=== PATIENT | female | born 1930 | race Caucasian/White ===

== ENCOUNTER → 2016-06-26 | Outpatient (CLI) | payer MEDICARE, BC | LOC: MW.CHIM 14:23 | PROVIDERS: ATTEND Internal Medicine | DX: I10 Essential (primary) hypertension (principal) | CPT/HCPCS: 99204 ==

== ENCOUNTER → 2016-06-30 | Outpatient (CLI) | payer MEDICARE, BC ==
--- NOTE | 2016-07-02 15:18 | ECHO ---
The echocardiogram report can be seen in this patient's EMR in the Reports section. SRAVANI
== END ==
LOC: MW.US 13:56
PROVIDERS: ATTEND Internal Medicine
DX: I10 Essential (primary) hypertension (principal)
CPT/HCPCS: 93306

== ENCOUNTER 2018-04-02 09:52 | Emergency (ER) | payer MEDICARE, BC ==
--- NOTE | 2018-04-02 10:13 | EDM.PDOC ---
ED HPI GENERAL MEDICAL PROBLEM - General Chief Complaint: General Stated Complaint: SPOKE TO NURSE Time Seen by Provider: 04/02/18 10:06 Source of Information: Reports: Patient History Limitations: Reports: No Limitations - History of Present Illness INITIAL COMMENTS - FREE TEXT/NARRATIVE: HISTORY AND PHYSICAL: History of present illness: Patient is an 88-year-old female who presents to the ED today with her son and daughter for concerns that she may have fell. Son states that over the past couple days she has been limping with her right hip and has been complaining of her right elbow hurting. He states there is a bruise on the hip and elbow and thinks that she fell. Patient states she does not remember falling, however, son expresses concern that she may not admit to this for concerns of having to go to [facility]. Son says that she did fall and break her pubic rami and Guy, but that this inability to walk the past 3 days is new. Patient also complains of nausea, decrease in appetite, and large amounts of bright red blood in her stool with the past 3 days. Patient's son expresses concern that she is losing weight and not wanting to eat due to her nausea. Normally, patient is able to fully take care of herself at home and complete all her ADLs. However, the past few days they've been having to help with going to the bathroom and fixing meals. Patient states she's also been somewhat short of breath and gets tired easily. Patient denies fever, chills, headache, change in vision, dizziness, chest pain , shortness of breathe or cough. Denies any abdominal pain, nausea, vomiting, diarrhea, constipation, or dysuria. Patient has a history of GERD, hypertension, osteoarthritis, COPD, Afib, history of humerus fracture, chronic hip pain, pubic rami fracture (02/05/18), and an AZ. Review of systems: As per history of present illness and below otherwise all systems reviewed and negative. Past medical history: As per history of present illness and as reviewed below otherwise noncontributory. Surgical history: As per history of present illness and as reviewed below otherwise noncontributory. Social history: See social history for further information Family history: As per history of present illness and as reviewed below otherwise noncontributory. Physical exam: General: Patient is alert, oriented, and in no acute distress. She is lying comfortably on exam table. Nontoxic appearing. HEENT: Atraumatic, normocephalic, pupils equal and reactive bilaterally, negative for conjunctival pallor or scleral icterus, mucous membranes dry, TMs normal bilaterally, throat clear, neck supple, nontender, trachea midline. No drooling or trismus noted. No meningeal signs. No hot potato voice noted. Lungs: Greatly diminished but clear to auscultation, breath sounds equal bilaterally, chest nontender. Heart: S1S2, irregularly irregular rate and rhythm without overt murmur Abdomen: Soft, nondistended, nontender. Negative for masses or hepatosplenomegaly. Negative for costovertebral tenderness. Positive bowel sounds in all quadrants. Pelvis: Stable nontender. Genitourinary: Deferred. Rectal: This was done with consent and electronics test engineer at the bedside. Allen blood noted, small external hemorrhoids noted, good rectal tone. Skin: Intact, warm, dry. No lesions or rashes noted. There is brawny discoloration from the mid tibial down to the feet. Extremities: Patient does have a hematoma overlying the right elbow. She does have full range of motion and strength of this extremity. She also has a bruise over her right hip with moderate pain to palpation of the greater trochanter of the right femur. Posterior tibial and dorsalis pedis pulses are grossly intact bilaterally, cap refill less than 2 seconds. Negative for cords or calf pain. Neurovascular unremarkable. Neuro: Awake, alert, oriented. Cranial nerves II through XII unremarkable. Cerebellum unremarkable. Motor and sensory unremarkable throughout. Exam nonfocal. She does have occasional "gag" reflex is elicited throughout exam. Notes: Patient is having some diminished lung sounds, gross bright red allen blood per rectum, and evidence of injury to the right elbow and right hip. We'll perform imaging and lab work. Patient's troponin is elevated at this time. I did inform the patient and family members of this finding. Patient continues to deny any chest pain. We discussed transfer to [facility] in [place], our facility is currently on diversion and we do not have a sales order coordinator in house. The patient and family are agreeable to transfer. Vital signs remain stable. Dr Alonso, the physician at [facility], was consulted on this case. Did ask if she wanted any medications given prior to transfer including aspirin or anticoagulants. Due to the patient's rectal bleeding she does not want any medications given at this time. She is agreeable to having this patient transferred via ground EMS. Head CT shows no acute intracranial findings. Chest x-ray shows no acute findings. Right elbow replacement hardware intact with generalized osteopenia, no acute findings. CT of the abdomen and pelvis shows no acute findings. There is diverticulitis without diverticulosis. Mild compression deformity noted at L2. There is a stable chronic pubic rami fracture. Enlarged pancreatic head cyst , this was not easily visualized due to the lack of IV contrast. As the patient is being transferred we'll not add any additional exams at this time. Patient and family was made aware of except and/transferred to [place]. Head CT and abdomen/pelvis CT results are pending. We'll continue to monitor patient and update accepting facility on these results. Diagnostics: ekg, hip xray, CBC, CMP, troponin, INR, UA, Hemoccult, head CT, although x-ray, chest x-ray, abdominal pelvic CT Therapeutics: DuoNeb, Zofran, Normal Saline Impression: Bright Red Blood per Rectum Acute on Chronic Right Hip Pain Acute Coronary Syndrom Hyponatremia Renal Insufficiency Plan: Transferred to [facility] in [place] via ground EMS Definitive disposition and diagnosis as appropriate pending reevaluation and review of above. Bilateral Hip Pain Score (Numeric/FACES): 8 - Related Data Allergies Allergy/AdvReac Type Severity Reaction Status Date / Time Sulfa (Sulfonamide Allergy Cannot Verified 04/02/18 10:03 Antibiotics) Remember Home Meds: Home Meds Atenolol 50 mg PO DAILY 07/18/15 [History] Diltiazem HCl [Diltiazem 24Hr ER] 240 mg PO QAM 07/18/15 [History] atorvaSTATin [Lipitor] 20 mg PO BEDTIME 07/20/15 [History] Loratadine [Claritin] 10 mg PO DAILY 11/15/17 [History] PARoxetine [Paxil] 10 mg PO DAILY 11/15/17 [History] Umeclidinium Brm/Vilanterol Tr [Anoro Ellipta 62.5-25 MCG] 1 puff INH DAILY 08/26 [History] Past Medical History HEENT History: Reports: Other (See Below) Other HEENT History: wears glasses, has upper denture, has bilateral hearing aides Cardiovascular History: Reports: High Cholesterol, Hypertension, AZ Other Cardiovascular History: hx of AZ in 1984- treated with medication, no stents. Denies current chest pain and SOB Respiratory History: Reports: COPD Other Respiratory History: uses daily inhaler Gastrointestinal History: Reports: GERD, Hiatal Hernia Genitourinary History: Reports: UTI, Recurrent ROAD MANAGER History: Reports: Other ROAD MANAGER History: 5 childbirth's Musculoskeletal History: Reports: Arthritis, Fracture Other Musculoskeletal History: hx of fx right elbow Neurological History: Reports: Vertigo Psychiatric History: Reports: Depression Endocrine/Metabolic History: Reports: None Hematologic History: Reports: None Immunologic History: Reports: None Oncologic (Cancer) History: Reports: None Dermatologic History: Reports: Eczema - Infectious Disease History Infectious Disease History: Reports: Chicken Pox, Measles, Mumps - Past Surgical History Head Surgeries/Procedures: Reports: None GI Surgical History: Reports: Appendectomy, Cholecystectomy Female Surgical History: Reports: Hysterectomy, Oophorectomy Musculoskeletal Surgical History: Reports: Joint Replacement Other Musculoskeletal Surgeries/Procedures:: right elbow Social & Family History - Family History Family Medical History: Noncontributory - Caffeine Use Caffeine Use: Reports: None ED ROS GENERAL - Review of Systems Review Of Systems: ROS reveals no pertinent complaints other than HPI. ED EXAM, GENERAL - Physical Exam Exam: See Below (See dictation) Course - Vital Signs Last Recorded V/S: Last Vital Signs Temp 97.0 F 04/02/18 11:35 Pulse 99 04/02/18 11:35 Resp 28 H 04/02/18 11:35 BP 105/54 L 04/02/18 11:45 Pulse Ox 95 04/02/18 11:35 - Orders/Labs/Meds Orders: Active Orders 24 hr Category Date Time Status EKG 12 Lead [EKG Documentation Completion] [RC] STAT Care 04/02/18 10:10 Active Hemoccult [Fecal Occult Blood Collection] [RC] Care 04/02/18 10:28 Active ASDIRECTED RT Aerosol Therapy [RC] ASDIRECTED Care 04/02/18 10:38 Active Urinary Catheter Assessment [RC] ASDIRECTED Care 04/02/18 10:50 Active Urinary Catheter Insertion [Insert Urinary Catheter] [ Care 04/02/18 10:49 Ordered OM.PC] Stat UA RFX BETZY AND CULT IF INDIC [URIN] Stat Lab 04/02/18 10:23 Ordered Sodium Chloride 0.9% [Normal Saline] 1,000 ml Med 04/02/18 10:27 Active IV STAT Medication Orders Sodium Chloride (Normal Saline) 1,000 mls @ 150 mls/hr IV STAT ONE Stop: 04/02/18 17:06 Last Admin: 04/02/18 10:53 Dose: 150 mls/hr Labs: Laboratory Tests 04/02/18 04/02/18 04/02/18 Range/Units 10:45 10:45 10:45 WBC 6.91 (4.0-11.0) K/uL RBC 3.80 L (4.30-5.90) M/uL Hgb 11.3 L (12.0-16.0) g/dL Hct 33.5 L (36.0-46.0) % MCV 88.2 (80.0-98.0) fL MCH 29.7 (27.0-32.0) pg MCHC 33.7 (31.0-37.0) g/dL RDW Std Deviation 52.3 (28.0-62.0) fl RDW Coeff of Jordan 16 H (11.0-15.0) % Plt Count 80 L (150-400) K/uL MPV 8.90 (7.40-12.00) fL Add Manual Diff YES Neutrophils % (Manual) 71 (48.0-80.0) % Band Neutrophils % 19 % Lymphocytes % (Manual) 6 L (16.0-40.0) % Monocytes % (Manual) 2 (0.0-15.0) % Metamyelocytes % 2 % Nucleated RBC % 0.0 /100WBC Absolute Seg Neuts 4.9 (1.4-5.7) Band Neutrophils # 1.3 Lymphocytes # (Manual) 0.4 L (0.6-2.4) Monocytes # (Manual) 0.1 (0.0-0.8) Absolute Metamyelocyte 0.1 Nucleated RBCs # 0 K/uL INR 1.10 Sodium 130 L (136-145) mmol/L Potassium 4.1 (3.5-5.1) mmol/L Chloride 96 L (98-107) mmol/L Carbon Dioxide 17.3 L (21.0-32.0) mmol/L BUN 45 H (7.0-18.0) mg/dL Creatinine 2.7 H (0.6-1.0) mg/dL Est Cr Clr Drug Dosing 12.21 mL/min Estimated GFR (MDRD) 16.7 ml/min Glucose 99 (74-106) mg/dL Calcium 8.4 L (8.5-10.1) mg/dL Total Bilirubin 0.7 (0.2-1.0) mg/dL AST 53 H (15-37) IU/L ALT 38 (14-63) IU/L Alkaline Phosphatase 153 H (46-116) U/L Troponin I 0.288 H* (0.000-0.056) ng/mL Total Protein 5.6 L (6.4-8.2) g/dL Albumin 1.9 L (3.4-5.0) g/dL Globulin 3.7 (2.6-4.0) g/dL Albumin/Globulin Ratio 0.5 L (0.9-1.6) Meds: Medications Generic Name Dose Route Start Last Admin Trade Name Freq PRN Reason Stop Dose Admin Sodium Chloride 1,000 mls @ 150 mls/hr 04/02/18 10:27 04/02/18 10:53 Normal Saline IV 04/02/18 17:06 150 mls/hr STAT ONE Administration Discontinued Medications Generic Name Dose Route Start Last Admin Trade Name Freq PRN Reason Stop Dose Admin Albuterol/Ipratropium 3 ml 04/02/18 10:38 04/02/18 10:57 Duoneb 3.0-0.5 Mg/3 Ml NEB 04/02/18 10:39 3 ml ONETIME ONE Administration Ondansetron HCl 4 mg 04/02/18 10:27 04/02/18 10:53 Zofran IVPUSH 04/02/18 10:28 4 mg ONETIME ONE Administration Departure - Departure Time of Disposition: 11:55 Disposition: DC/[facility] to Acute Hospital 02 Clinical Impression: Acute coronary syndrome, Renal insufficiency, Hyponatremia, Chronic right hip pain, Bright red blood per rectum - Discharge Information Referrals: Javi Baird MD [Primary Care Provider] - Forms: ED Department Discharge - My Orders Last 24 Hours: My Active Orders 04/02/18 10:10 EKG 12 Lead [EKG Documentation Completion] [RC] STAT 04/02/18 10:23 UA RFX BETZY AND CULT IF INDIC [URIN] Stat 04/02/18 10:27 Sodium Chloride 0.9% [Normal Saline] 1,000 ml IV STAT 04/02/18 10:28 Hemoccult [Fecal Occult Blood Collection] [RC] ASDIRECTED 04/02/18 10:38 RT Aerosol Therapy [RC] ASDIRECTED 04/02/18 10:49 Urinary Catheter Insertion [Insert Urinary Catheter] [OM.PC] Stat 04/02/18 10:50 Urinary Catheter Assessment [RC] ASDIRECTED - Assessment/Plan Last 24 Hours: My Active Orders 04/02/18 10:10 EKG 12 Lead [EKG Documentation Completion] [RC] STAT 04/02/18 10:23 UA RFX BETZY AND CULT IF INDIC [URIN] Stat 04/02/18 10:27 Sodium Chloride 0.9% [Normal Saline] 1,000 ml IV STAT 04/02/18 10:28 Hemoccult [Fecal Occult Blood Collection] [RC] ASDIRECTED 04/02/18 10:38 RT Aerosol Therapy [RC] ASDIRECTED 04/02/18 10:49 Urinary Catheter Insertion [Insert Urinary Catheter] [OM.PC] Stat 04/02/18 10:50 Urinary Catheter Assessment [RC] ASDIRECTED
[2018-04-02] MEDS ORDERED: Ondansetron 4 MG/2 ML SDV IVPUSH ONE (10:27)
[2018-04-02] MEDS ORDERED: Sodium Chloride 0.9% 1,000 ML IV ONE (10:27)
[2018-04-02] MEDS ORDERED: Albuterol/Ipratropium 3.0-0.5 MG/3 ML Neb Soln NEB ONE (10:38)
--- NOTE | 2018-04-02 11:32 | CR ---
EXAMINATION: Portable chest radiograph. HISTORY: Shortness of breath. Comparison: 05/05/2012. Comparison CT scan dated 06/10/2010. FINDINGS: The trachea is midline. The cardiomediastinal silhouette is stable. Moderate aortic calcifications are normal. No definite focal consolidation, pleural effusion, or pneumothorax. There is a 6 cm rounded retrocardiac opacity which may represent a hiatal hernia. However in comparison to previous CT scans this may represent a prominence of the IVC. Osseous structures appear osteopenic. IMPRESSION: 1. No acute cardiopulmonary process. 2. Rounded retrocardiac opacity, likely prominence of the IVC and a tortuous aorta.
--- NOTE | 2018-04-02 11:40 | CR ---
EXAMINATION: Right elbow HISTORY: Fall COMPARISON: Dated 03/14/2016 TECHNIQUE: AP, lateral, and oblique views. FINDINGS: There is right elbow replacement hardware demonstrated. There is no definitive joint effusion. The osseous structures otherwise appear notably osteopenic. No definite fracture or evidence of loosening. Periarticular dystrophic calcifications are noted. There is a lucent line on the lateral view however this extends beyond the articular margin and likely overlap from the dystrophic calcifications. IMPRESSION: 1. Right elbow replacement hardware demonstrated with generalized osteopenia. 2. No definitive acute osseous abnormality.
--- NOTE | 2018-04-02 11:47 | CT ---
EXAMINATION: Non contrast CT head. Coronal and sagittal reformats. HISTORY: Pain FINDINGS: No evidence of intra or extra axial hemorrhage, mass, midline shift, hydrocephalus or edema. There is minimal generalized atrophy. Periventricular and subcortical white matter hypodensities are noted. No hypoattenuation changes in the major vascular territories to suggest acute infarct. No abnormal intracranial calcifications are detected. Mild vascular calcifications.. Orbits and globes are symmetric. The visualized paranasal sinuses are clear. Partial opacification of several mastoid air cells bilaterally. Pituitary fossa appears unremarkable. Calvarium is intact. No evidence of skull fracture. IMPRESSION: 1. No definitive intracranial findings. 2. Mild generalized atrophy and moderate small vessel ischemic changes.
--- NOTE | 2018-04-02 11:59 | CT ---
CT of the abdomen and pelvis without contrast. HISTORY: Blood in stool TECHNIQUE: Axial CT images were obtained of the abdomen and pelvis without contrast. Coronal and sagittal reconstructions obtained. FINDINGS: The lung bases are clear, no pleural effusion. Bibasilar atelectasis. The liver, spleen, and adrenal glands appear unremarkable for noncontrast examination. Multiple small cysts noted within the region of the pancreatic head. These appear increased in size in comparison to the previous CT however not well evaluated without contrast. There is no bulky retroperitoneal lymphadenopathy. No abdominal ascites. Nonobstructing nephrolithiasis bilaterally. The large and small bowel are normal in caliber without evidence of obstruction. Diverticulosis without evidence of diverticulitis. There is no bulky pelvic lymphadenopathy. No free fluid. No free air. The urinary bladder appears normal. Mild compression deformity noted at L2. Grade 2 anterolisthesis of L4 on L5 bilateral facet arthritic changes. Osseous structures otherwise appear osteopenic. Degenerative changes within the hips. Comminuted right pubic rami fractures noted, these have a chronic appearance. Likely chronic sacral fracture. IMPRESSION: 1. No definite acute findings within the abdomen or pelvis. 2. Enlarging pancreatic head cyst, not well characterized without contrast. 3. Nonobstructing small nephrolithiasis. 4. Diverticulosis without definite diverticulitis. 5. Chronic right pubic rami fracture and chronic left sacral insufficiency fracture. 6. Mild compression deformity noted at L2.
[2018-04-02 12:25] VITALS: BP 102/55
== END 2018-04-02 12:45 ==
LOC: MW.ED 09:52
DX: S50.01XA Contusion of right elbow, initial encounter (principal); S70.01XA Contusion of right hip, initial encounter; I24.9 Acute ischemic heart disease, unspecified; K62.5 Hemorrhage of anus and rectum; N28.9 Disorder of kidney and ureter, unspecified; E87.1 Hypo-osmolality and hyponatremia; I10 Essential (primary) hypertension; I25.2 Old myocardial infarction; E78.00 Pure hypercholesterolemia, unspecified; K21.9 Gastro-esophageal reflux disease without esophagitis; J44.9 Chronic obstructive pulmonary disease, unspecified; Z79.899 Other long term (current) drug therapy; Z88.2 Allergy status to sulfonamides; X58.XXXA Exposure to other specified factors, initial encounter
CPT/HCPCS: 36415; 51701; 70450; 71045; 73080; 74176; 80053; 84484; 85025; 85610; 93005; 94640; 96361; 96374; 99285; J2405; J7040; J7620-GY